=== PATIENT | female | born 1980 | race Caucasian/White ===

== ENCOUNTER 2016-11-02 22:28 | Emergency (ER) | payer MEDICAID ==
[2016-11-02] MEDS ORDERED: SULFAMETHOXAZOLE/TRIMETHOPRIM 1 TAB TABLET PO ONE (23:37)
[2016-11-02] MEDS ORDERED: SULFAMETHOXAZOLE/TRIMETHOPRIM 1 TAB TABLET ONE (23:45)
--- NOTE | 2016-11-02 23:46 | ERNOTE ---
Integumentary HPI - General Presenting Symptoms: abscess Source: patient Exam Limitations: no limitations - Immun/Allergies/Home Medications Immunizations: IMMUNIZATION HX History of Influenza Vaccine More Information Required Hx Pneumococcal Vaccination More Information Required Allergies/Adverse Reactions: Allergies Allergy/AdvReac Type Severity Reaction Status Date / Time cefazolin Allergy Anaphylaxis Verified 06/26/15 02:05 ibuprofen Allergy Verified 06/25/15 19:05 Home Medications: HOME MEDICATIONS Hydrocodone/Acetaminophen [Vicodin Hp 10-300 mg Tablet] 1 tab PO Q6H PRN [Last Taken Unknown] PARoxetine HCL [Paxil] 20 mg PO DAILY 11/02/16 [Last Taken Unknown] Phentermine HCl [Adipex-P] 37.5 mg PO ONCE 11/02/16 [Last Taken Unknown] Sulfamethoxazole/Trimethoprim [Bactrim Ds] 1 tab PO BID #20 tab 11/02/16 [Last Taken Unknown] - History of Present Illness Narrative: Patient noticed what appeared to be a zit on her left cheek three days ago. The area got significant more swollen to where it involved most of her cheek yesterday. She did not want to be seen and applied 'drawing salve' on it. The swelling is decreased today and when she removed the bandage earlier it had opened up and there was significant drainage. 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 Date (Duration): 10/30/16 Location: Reports: facial Quality: Reports: painful Review of Systems - Review of Systems Constitutional: Absent: recent illness, fever ENT: Present: nose congestion Respiratory: Present: cough. Absent: shortness of breath Cardiology: Absent: chest pain Gastrointestinal/Abdominal: Absent: nausea, vomiting, diarrhea, abdominal pain Musculoskeletal: Absent: muscle pain Skin: Present: See HPI - Patient's Past Medical History Patient History - Medical: No pertinent hx Patient History - Cardiac/Respiratory: No pertinent hx Patient History - Cancer: No Hx of Cancer Patient History - Surgical Procedures: Appendectomy, Cholecystectomy, , T & A Patient History - Other: None LMP (females 10-50): last week - Social History Living Situations: home Abuse History: No History of abuse Psych History: No pertinent hx Smoking Status: Current every day smoker Alcohol Use: rarely Drug Use: none - Immunizations Hx Pneumococcal Vaccination: More Information Required to Determine History of Influenza Vaccine: More Information Required to Determine Physical Exam - Physical Exam General Appearance: Present: wd/wn, alert, no apparent distress Eye Exam: Normal inspection: bilateral Ears, Nose, Throat: Present: normal except -, normal pharynx, other - on left cheek about 3cm area of erythema, swelling, induration with central opening, minimal drainage Neck: Present: normal inspection, lymphadenopathy (L) - small Respiratory: Present: no respiratory distress, normal breath sounds, no accessory muscle use, lungs clear Cardiovascular/Chest: Present: regular rate, rhythm, no murmur Neurological Exam: Present: alert, oriented, normal mood/affect Skin Exam: Present: normal color, warm/dry ED Progress - Vital Signs Patient's Vital Signs:: I have reviewed the patient's vital signs. Vital Signs: Vital Signs 11/02/16 22:28 Temperature 36.8 C Pulse Rate 103 H Respiratory 18 Rate Blood Pressure 157/88 O2 Sat by Pulse 100 Oximetry - Progress/Reassessment Chief Complaint: Abscess Departure Clinical Impression: Facial abscess - Departure Disposition: Home self-care Condition: Good Instructions: Abscess, [id number] Referrals: Eladio Alvarez MD [Primary Care Provider] - Prescriptions: Sulfamethoxazole/Trimethoprim [Bactrim Ds] 1 tab PO BID #20 tab
[2016-11-02 23:50] VITALS: BP 127/83
--- OUTSIDE RECORDS SUMMARY | 2016-11-02 23:53 | XMS REPORT | Continuity of Care Document ---
:1980 Author Organization [facility] ([facility]) Address [address] [place] [address] Phone [phone] Care Team Providers Name Role Phone Anotnio Shirley Primary Care Provider [phone] Source Comments This disclosure is being made pursuant to the Care Everywhere program, applicable federal and state laws, and may not contain all informaitonavailable regarding this patient.[facility] ([facility]) Active Allergies and Adverse Reactions No Known Allergies Current Medications Prescription Sig. Disp. Refills Start Date End Date Status gabapentin 300 mg Take 300 mg by mouth Active capsule 3 times daily oxyCODONE-acetaminoph Take 1 Tab by mouth Active en 5-325 mg per 2 times daily tablet .Alternate with hydrocodone-APAP 10/300mg. Do Not exceed 4000 mg of acetaminophen per 24 hours. lidocaine 5 % patch 1 Patch every 24 Active hours Apply 1 patch on the skin daily. Apply for 12 hours and remove for 12 hours, then repeat cycle. HYDROcodone-acetamino Take 1 Tab by mouth Active phen 10-300 mg per 2 times daily tablet Alternate with oxycodone 5/325mg. phentermine 37.5 mg Take 37.5 mg by Active capsule mouth every morning after breakfast as needed . Take 2 hours after breakfast. diphenhydrAMINE 25 mg Take 1 Cap (25 mg 30 Cap 0 03/14/2015 Active capsule total) by mouth 2 times daily famotidine 20 mg Take 1 Tab (20 mg 30 Tab 11 03/14/2015 Active tablet total) by mouth 2 times daily EPINEPHrine (EPI-PEN) Inject 0.3 mL (0.3 7 Syringe 0 03/14/2015 Active 0.3 mg/0.3 mL mg total) injection syringe intramuscularly once as needed Active Problems Problem Noted Date Elevated LFTs 03/13/2015 Chronic low back pain 03/13/2015 Overview: History of multiple back surgeries with hardware placement and removal for herniated disk. Anaphylaxis 03/13/2015 Colitis 03/13/2015 Acute hepatitis 03/13/2015 Resolved Problems Problem Noted Date Resolved Date Abdominal pain, epigastric 03/14/2015 03/14/2015 UTI (lower urinary tract infection) 03/13/2015 03/14/2015 Abdominal pain, acute, periumbilical 03/13/2015 03/14/2015 Social History Tobacco Use Types Packs/Day Years Used Date Current Every Day Smoker 1 Smokeless Tobacco: Never Used Tobacco Cessation:Counseling Given: Yes Comments: Alcohol Use Drinks/Week oz/Week Comments No Last Filed Vital Signs Vital Sign Reading Time Taken Blood Pressure 116/67 03/14/2015 4:00 PM CDT Pulse 115 03/14/2015 4:00 PM CDT Temperature 36.8 C (98.2 F) 03/14/2015 4:00 PM CDT Respiratory Rate 18 03/14/2015 4:00 PM CDT Height 1.6 m (5' 3") 03/14/2015 12:50 AM CDT Weight 46.4 kg (102 lb 4.7 oz) 03/14/2015 12:50 AM CDT Body Mass Index 18.13 03/14/2015 12:50 AM CDT Oxygen Saturation 98% 03/14/2015 4:00 PM CDT Plan of Care Health Maintenance Due Date Last Done Comments Hepatitis B Vaccine (1 of 3 - Primary Series) 1980 Tdap Vaccine 12/13/1991 Lipid Disorder Screening 1998 MMR Vaccine 1998 Td Vaccine 1998 Varicella Vaccine (1 of 2 - Adult - No Evidence of 1998 Immunity) Pneumococcal Vaccine (1 of 1 - PPSV23) 12/13/1999 Cervical Cancer Screening 2010 Influenza Vaccine: Seasonal (#1) 03/23/2016 Results from Last 3 Months Not on file
== END 2016-11-02 23:48 | disposition home or self-care (01) ==
LOC: ER 22:28
DX: L02.01 Cutaneous abscess of face (principal); Z72.0 Tobacco use